=== PATIENT | female | born 1940 | race Caucasian/White ===

== ENCOUNTER 2018-12-25 05:41 | Emergency (ER) | payer OTHER ==
[~2018-12-25] VITALS: Ht 157.5 cm; Wt 48.0 kg
[~2018-12-25 05:41] MED LIST: IBUP-1542 PO
[2018-12-25 05:44] VITALS: BP 122/60; PULSE 87; RESP 17; Ht 157.5 cm; Wt 48.0 kg
[2018-12-25] MEDS ORDERED: ACETAMINOPHEN 500 MG TAB PO STA (06:20)
[2018-12-25] MEDS ORDERED: DIPHTH/TET/ACEL PERTUSS (ADULT) 0.5 ML VIAL IM* ONE (06:30)
== END 2018-12-25 08:14 | disposition home or self-care (01) ==
LOC: FTE 05:41
DX: S42.291A Other displaced fracture of upper end of right humerus, initial encounter for closed fracture (principal); S01.111A Laceration without foreign body of right eyelid and periocular area, initial encounter; V81.4XXA Person injured while boarding or alighting from railway train or railway vehicle, initial encounter; Z23 Encounter for immunization; Z87.891 Personal history of nicotine dependence
CPT/HCPCS: 70450; 70480; 90471; 90715